=== PATIENT | male | born 1945 | race Caucasian/White ===

== ENCOUNTER → 2016-10-18 | Outpatient (CLI) | payer OTHER ==
--- NOTE | 2016-10-19 14:32 | CR ---
EXAM DATE: 10/18/16 PATIENT'S AGE: 71 Patient: CARLO PRATT Facility: [place], [place] Site . Site : 1945 Study: XRay Shoulder Right [id number]/9/2017 10:02:22 AM Ordering Physician: Dwayne Davison Final Report: Indication: Pain. Technique: Three views of the right shoulder. Comparison: None. Impression: No fracture. No suspicious bony lesions. No glenohumeral joint subluxation or dislocation. There are mild osteoarthritic changes of the glenohumeral joint, with joint space narrowing and marginal degenerate spurring. Presumed previous distal clavicular resection. No evidence of calcific tendinitis of the rotator cuff. Dictated by Zaki Kang MD @ Oct 19 2016 12:56PM (Electronic Signature) Report Signed by Proxy and Original Signed Document filed in the Medical Record. MUSA
== END ==
LOC: MW.CHORTHO 07:35
PROVIDERS: ATTEND Physician Assistant
DX: M25.511 Pain in right shoulder (principal); M25.512 Pain in left shoulder; M19.011 Primary osteoarthritis, right shoulder
CPT/HCPCS: 73030-26-RT; 73030-RT

== ENCOUNTER 2017-02-07 12:03 | Day surgery (SDC) | payer OTHER ==
[~2017-02-07 12:03] MED LIST: Betamethasone Acetate/Betamethasone Sod Phosphate 30 MG/5 ML MDV ONE; Iopamidol 408 MG/ML 50 ML SDV ONE; Lidocaine 2% 5 ML SDV ONE; Ropivacaine 0.5% 5 MG/ML 30 ML SDV ONE
--- NOTE | 2017-02-07 19:45 | OR ---
SURGEON: Do Melgar D.O. DATE OF PROCEDURE: 02/07/2017 OR STAFF PRESENT: 1. Lydia Rajan RN. 2. Mendoza Whiteside RN. ADMISSIONS CLINICIAN: RT Denisse. WOUND CLASSIFICATION: I. PREOPERATIVE DIAGNOSES: 1. Lumbar degenerative disk disease. 2. Lumbar spinal stenosis. 3. Lumbar radiculopathy. POSTOPERATIVE DIAGNOSES: 1. Lumbar degenerative disk disease. 2. Lumbar spinal stenosis. 3. Lumbar radiculopathy. PROCEDURE PERFORMED: 1. Caudal epidural steroid injection. 2. Fluoroscopic guidance for needle placement. 3. Local with oral Valium for sedation. SCREENING QUESTIONS: The patient answered "no" to all of the following questions: 1. Are you allergic to latex? 2. Do you have a bleeding disorder? 3. Do you have any current local or systemic infections? 4. Are you taking any anti-inflammatories or blood thinners? 5. Do you have any joint replacements, heart valve replacements, or a pacemaker? DESCRIPTION OF PROCEDURE: The patient had the procedure thoroughly explained including all possible risks, benefits and alternatives. Consent was signed in my clinic indicating understanding and willingness to proceed. The patient presented to [facility] [place] and was escorted to the dressing room to disrobe and change into a hospital gown. Preoperative vital signs were taken and stable. The patient reported that Valium was taken prior to the procedure. The patient was brought back to the procedure room and placed in the prone position on the procedure room table. A pillow was placed under the hips in order to flatten the lumbar lordosis. The back was prepped with ChloraPrep and sterilely draped. All personnel in the operating room were dressed in appropriate attire including surgical scrubs, head and shoe covers. This was to ensure sterility while in the treatment room. During the time fluoroscopy was in use, all personnel in the operating room wore lead moreno with thyroid collars. Sterile technique was used throughout the procedure. The patient was awake and conversant throughout the procedure. There was no evidence of infection at the site of needle insertion. Skeletal landmarks were identified under fluoroscopy for the caudal epidural. Skin was anesthetized with 2% lidocaine with a sterile 27-gauge 1.5 inch needle. Then a 20-gauge Tuohy epidural needle was placed in the epidural space with loss of resistance technique under fluoroscopic guidance. No heme, cerebrospinal fluid, or paresthesias were noted. Isovue-200 contrast dye was injected in 0.2 cubic centimeter increments and seen to outline the epidural space in both AP and lateral views. There was no intravascular flow pattern observed under live fluoroscopy. Then 12 milligrams of Celestone was slowly injected after negative aspiration. The patient tolerated the procedure well. Vital signs were stable during and after the procedure. The staff escorted the patient to the recovery area and the patient was released in stable condition after a brief stay in the recovery room monitored by the nurse. The patient was given both oral and written discharge and follow up instructions with recommendation to follow up given for 3 weeks. The patient voiced understanding including understanding of those signs and symptoms that would require emergency care. The patient knows how to contact the office if there are any additional problems or questions in the meantime. PREOPERATIVE PAIN: 8/10. POSTOPERATIVE PAIN: 0/10. FOLLOWUP: Follow up in the pain clinic in 3 weeks. PATRICE / LYDIA /[id number] MUSA
== END 2017-02-07 13:44 | disposition home or self-care (01) ==
LOC: MW.SDS 12:03
PROVIDERS: ATTEND Anesthesiology
DX: M51.16 Intervertebral disc disorders with radiculopathy, lumbar region (principal); M48.06 Spinal stenosis, lumbar region; M47.817 Spondylosis without myelopathy or radiculopathy, lumbosacral region; M19.90 Unspecified osteoarthritis, unspecified site; J45.909 Unspecified asthma, uncomplicated; K21.9 Gastro-esophageal reflux disease without esophagitis; I10 Essential (primary) hypertension; E78.00 Pure hypercholesterolemia, unspecified; M75.42 Impingement syndrome of left shoulder; M19.031 Primary osteoarthritis, right wrist; M19.032 Primary osteoarthritis, left wrist; Z91.048 Other nonmedicinal substance allergy status; Z79.899 Other long term (current) drug therapy; Z98.52 Vasectomy status; Z96.659 Presence of unspecified artificial knee joint; Z90.89 Acquired absence of other organs; Z98.890 Other specified postprocedural states
CPT/HCPCS: 62273; J0702; J2795; Q9966

== ENCOUNTER 2017-03-28 11:27 | Day surgery (SDC) | payer OTHER ==
[~2017-03-28 11:27] MED LIST changes: -Iopamidol 408 MG/ML 50 ML SDV ONE; +Ropivacaine 0.2% 2 MG/ML 20 ML SDV ONE
--- NOTE | 2017-03-28 20:09 | OR ---
SURGEON: Do Melgar D.O. DATE OF PROCEDURE: 03/28/2017 OR STAFF PRESENT: 1. Kathy Hayward. 2. Jose Tavares RN. FULLERETTE: RT Adelina. WOUND CLASSIFICATION: I. PREOPERATIVE DIAGNOSES: 1. Chronic low back pain. 2. Lumbar radiculopathy. 3. Lumbar spinal stenosis. POSTOPERATIVE DIAGNOSES: 1. Chronic low back pain. 2. Lumbar radiculopathy. 3. Lumbar spinal stenosis. PROCEDURE PERFORMED: 1. Caudal epidural steroid injection. 2. Fluoroscopic guidance for needle placement. 3. Local with oral Valium for sedation. SCREENING QUESTIONS: The patient answered "no" to all of the following questions: 1. Are you allergic to latex? 2. Do you have a bleeding disorder? 3. Do you have any current local or systemic infections? 4. Are you taking any anti-inflammatories or blood thinners? 5. Do you have any joint replacements, heart valve replacements, or a pacemaker? DESCRIPTION OF PROCEDURE: The patient had the procedure thoroughly explained including all possible risks, benefits and alternatives. Consent was signed in my clinic indicating understanding and willingness to proceed. The patient presented to [facility] [place] and was escorted to the dressing room to disrobe and change into a hospital gown. Preoperative vital signs were taken and stable. The patient reported that Valium was taken prior to the procedure. The patient was brought back to the procedure room and placed in the prone position on the procedure room table. A pillow was placed under the hips in order to flatten the lumbar lordosis. The back was prepped with ChloraPrep and sterilely draped. All personnel in the operating room were dressed in appropriate attire including surgical scrubs, head and shoe covers. This was to ensure sterility while in the treatment room. During the time fluoroscopy was in use, all personnel in the operating room wore lead moreno with thyroid collars. Sterile technique was used throughout the procedure. The patient was awake and conversant throughout the procedure. There was no evidence of infection at the site of needle insertion. Skeletal landmarks were identified under fluoroscopy for the caudal epidural. Skin was anesthetized with 2% lidocaine with a sterile 27-gauge 1.5 inch needle. Then a 20-gauge Tuohy epidural needle was placed in the epidural space with loss of resistance technique under fluoroscopic guidance. No heme, cerebrospinal fluid, or paresthesias were noted. Isovue-200 contrast dye was injected in 0.2 cubic centimeter increments and seen to outline the epidural space in both AP and lateral views. There was no intravascular flow pattern observed under live fluoroscopy. Then 12 milligrams of Celestone was slowly injected after negative aspiration. The patient tolerated the procedure well. Vital signs were stable during and after the procedure. The staff escorted the patient to the recovery area and the patient was released in stable condition after a brief stay in the recovery room monitored by the nurse. The patient was given both oral and written discharge and follow up instructions with recommendation to follow up given for 2-3 weeks. The patient voiced understanding including understanding of those signs and symptoms that would require emergency care. The patient knows how to contact the office if there are any additional problems or questions in the meantime. PREOPERATIVE PAIN: 7/10. POSTOPERATIVE PAIN: 2/10. FOLLOWUP: Follow up in the Pain Clinic in 3 weeks. PATRICE / LYDIA /[id number] MUSA
== END 2017-03-28 13:25 ==
LOC: MW.SDS 11:27
PROVIDERS: ATTEND Anesthesiology
DX: G89.29 Other chronic pain (principal); M54.5 Low back pain; M51.16 Intervertebral disc disorders with radiculopathy, lumbar region; M48.06 Spinal stenosis, lumbar region; M47.26 Other spondylosis with radiculopathy, lumbar region; M19.90 Unspecified osteoarthritis, unspecified site; J45.909 Unspecified asthma, uncomplicated; M19.079 Primary osteoarthritis, unspecified ankle and foot; K21.9 Gastro-esophageal reflux disease without esophagitis; I10 Essential (primary) hypertension; E78.00 Pure hypercholesterolemia, unspecified; M75.41 Impingement syndrome of right shoulder; M75.42 Impingement syndrome of left shoulder; M47.27 Other spondylosis with radiculopathy, lumbosacral region; Z79.82 Long term (current) use of aspirin; Z79.899 Other long term (current) drug therapy; Z91.048 Other nonmedicinal substance allergy status; Z98.52 Vasectomy status; Z96.659 Presence of unspecified artificial knee joint; Z90.89 Acquired absence of other organs; Z98.890 Other specified postprocedural states; Z77.22 Contact with and (suspected) exposure to environmental tobacco smoke (acute) (chronic)
CPT/HCPCS: 62323; J0702; J2795

== ENCOUNTER 2017-08-15 12:02 | Day surgery (SDC) | payer OTHER ==
[~2017-08-15 12:02] MED LIST changes: +Iopamidol 408 MG/ML 50 ML SDV ONE; -Ropivacaine 0.2% 2 MG/ML 20 ML SDV ONE
--- NOTE | 2017-08-15 20:43 | OR ---
SURGEON: Do Melgar D.O. DATE OF PROCEDURE: 08/15/2017 OR STAFF PRESENT: 1. Kathy Hayward. 2. Jose Sahu RT. WOUND CLASSIFICATION: I. PREOPERATIVE DIAGNOSES: 1. Lumbar spondylosis. 2. Chronic low back pain. 3. Post lumbar laminectomy syndrome. POSTOPERATIVE DIAGNOSES: 1. Lumbar spondylosis. 2. Chronic low back pain. 3. Post lumbar laminectomy syndrome. PROCEDURE PERFORMED: 1. Diagnostic medial branch blocks L3, L4, and L5 bilateral. 2. Fluoroscopic guidance for needle placement. 3. Local with oral Valium for sedation. SCREENING QUESTIONS: The patient answered "No" to all the following questions: 1. Are you allergic to iodine, Betadine or latex? 2. Do you have a bleeding disorder? 3. Are you on anti-inflammatories or blood thinners? 4. Do you have any current local or systemic infections? MEDICAL NECESSITY: This is a patient with chronic low back pain who comes in for the above diagnostic procedure. This procedure is being performed in accordance with national guidelines written by the [employer]; please see medical necessity note in chart. DESCRIPTION OF PROCEDURE: The patient had the procedure thoroughly explained including risks, benefits and alternatives. Consent was signed in my clinic indicating understanding and willingness to proceed. The patient presented to [facility] and was escorted to the dressing room to disrobe and change into a hospital gown. Preoperative history and screening were performed by my nurse. Vital signs were taken and stable. The patient reported that Valium 10 milligrams was taken prior to the procedure. The patient was brought back to the procedure room and placed in the prone position on the procedure room table. A pillow was placed under the abdomen in order to flatten the lumbar lordosis. The back was prepped with ChloraPrep and sterilely draped. All personnel in the procedure room were dressed in appropriate attire including surgical scrubs, head and shoe covers. This was to ensure sterility while in the treatment room. During the time fluoroscopy was in use all personnel in the operating room wore lead moreno with thyroid collars. Sterile technique was used during the procedure. The fluoroscope was positioned to provide a right oblique view. Then the right L3 medial branch block was begun by anesthetizing the skin and soft tissues with 2 cubic centimeters of 2% Preservative-Free Lidocaine with a 25-gauge 1.5 inch needle. There were no signs of infection at the site of needle skin insertions. Using fluoroscopic guidance a sterile 22-gauge 3.5 inch spinal needle was positioned at the junction of the transverse process with the superior articular process of the L4 vertebral body. Precise needle placement was confirmed by fluoroscopy and 0.2 cubic centimeters of IsoVue-200 contrast dye which was injected through microbore tubing under live fluoroscopy and showed no intravascular flow pattern and adequate flow over the target L3 medial branch. Then 0.5 cubic centimeters of 0.5% Ropivacaine Preservative-Free was injected slowly without complications after negative aspiration. Then the fluoroscope was positioned to provide a right oblique view for the right L4 medial branch. This was begun by anesthetizing the skin and soft tissues. The fluoroscope was positioned and a sterile 22-gauge 3.5 inch needle was placed at the junction of the transverse process in the superior articular process of the L5 vertebral body. Precise needle placement was confirmed by fluoroscopy. Then 0.2 cubic centimeters of IsoVue-200 contrast dye was injected through microbore tubing under live fluoroscopy and showed no intravascular flow pattern and adequate flow over the target medial branch. After negative aspiration, 0.5 cubic centimeters of 0.5% Ropivacaine was injected without complications. The fluoroscope was then positioned to provide a right L5 dorsal ramus block. This was begun by anesthetizing the skin and soft tissues over the right sacral sulcus. Then using fluoroscopic guidance, a sterile 22-gauge 3.5 inch spinal needle was positioned at the right sacral ala. Precise needle placement was confirmed by fluoroscopy in AP and oblique views, and 0.2 cubic centimeters of IsoVue-200 contrast dye was injected through microbore tubing under live fluoroscopy and showed no intravascular flow pattern and adequate flow over the target nerves. After negative aspiration, 0.5 cubic centimeters of 0.5% Ropivacaine was injected. No complications were noted. Then attention was turned to the left side. The fluoroscope was positioned to provide a left oblique view for the left L3 medial branch block. This was begun by anesthetizing the skin and soft tissues. Then a 22-gauge 3.5 inch needle was positioned at the junction of the transverse process and the superior articular process at the left L4 vertebral body. Precise needle placement was confirmed by fluoroscopy with 0.2 cubic centimeters of IsoVue-200 contrast dye injected through microbore tubing under live fluoroscopy showing no intravascular flow pattern and adequate flow over the target medial branch of L3 on the left. After negative aspiration, 0.5 cubic centimeters of 0.5% Ropivacaine was injected without complications. The fluoroscope was positioned then to provide a left L4 medial branch block. The skin was anesthetized. Then a 22-gauge 3.5 inch spinal needle was positioned at the junction of the transverse process in the superior articular process of the L5 vertebral body on the left. Precise needle placement was confirmed by fluoroscopy and with 0.2 cubic centimeters of IsoVue-200 contrast dye injected through microbore tubing showing no intravascular flow pattern and adequate flow over the target medial branch of L4 on the left. Then 0.5 cubic centimeters of 0.5% Ropivacaine was injected after negative aspiration without complications. Then the fluoroscope was positioned for the left L5 dorsal ramus block. This was begun by anesthetizing the skin and soft tissues. Then with fluoroscopic guidance a sterile 22-gauge 3.5 inch spinal needle was positioned at the left sacral ala. Precise needle placement was confirmed with 0.2 cubic centimeters of IsoVue-200 contrast dye injected through microbore tubing under live fluoroscopy showing no intravascular flow pattern and adequate flow over the target L5 nerve and then 0.5 cc ropivicaine was injected. The procedure was well tolerated and vital signs were stable during and after the procedure. The staff escorted the patient to the recovery area. The patient was given both oral and written discharge and followup instructions. The patient will follow up with a pain diary which will be evaluated over this evening doing things that would normally cause pain. We will evaluate the efficacy of the diagnostic lumbar medial branch blocks as the patient will follow up in the clinic the next day. The patient was given both oral and written discharge and followup instructions. The patient voiced understanding including understanding of those signs and symptoms that would require emergency care and knows how to contact the office if there are any questions or concerns in the meantime. PREOPERATIVE PAIN: 8/10. POSTOPERATIVE PAIN: 0/10. FOLLOWUP: Follow up in the pain clinic with pain diary in the morning. HOGLCHR / MODL /[id number] MUSA
== END 2017-08-15 15:35 | disposition home or self-care (01) ==
LOC: MW.SDS 12:02
PROVIDERS: ATTEND Anesthesiology
DX: M47.817 Spondylosis without myelopathy or radiculopathy, lumbosacral region (principal); J45.909 Unspecified asthma, uncomplicated; M19.079 Primary osteoarthritis, unspecified ankle and foot; R13.10 Dysphagia, unspecified; K22.10 Ulcer of esophagus without bleeding; K21.9 Gastro-esophageal reflux disease without esophagitis; M70.60 Trochanteric bursitis, unspecified hip; K64.9 Unspecified hemorrhoids; I10 Essential (primary) hypertension; E78.00 Pure hypercholesterolemia, unspecified; M75.41 Impingement syndrome of right shoulder; M75.42 Impingement syndrome of left shoulder; M19.031 Primary osteoarthritis, right wrist; M19.032 Primary osteoarthritis, left wrist; G89.29 Other chronic pain; Z91.048 Other nonmedicinal substance allergy status; Z79.82 Long term (current) use of aspirin; Z79.899 Other long term (current) drug therapy; Z90.89 Acquired absence of other organs; Z98.52 Vasectomy status
CPT/HCPCS: 64493; 64494; J2795; Q9966; 64450; J0702

== ENCOUNTER 2017-08-22 11:04 | Day surgery (SDC) | payer OTHER ==
[2017-08-22] MEDS ORDERED: Sodium Bicarbonate 8.4% 50 MEQ/50 ML SDV ONE (12:38)
--- NOTE | 2017-08-22 19:29 | OR ---
SURGEON: Do Melgar D.O. DATE OF PROCEDURE: 08/22/2017 OR STAFF PRESENT: 1. Kathy Barraza. 2. Jose Tavares. 3. Kathy Morris RN. 4. Elisha Elena RT. WOUND CLASSIFICATION: I. PREOPERATIVE DIAGNOSES: 1. Lumbar facet arthropathy. 2. Chronic low back pain. 3. Lumbar degenerative disk disease. 4. Lumbar spondylosis. POSTOPERATIVE DIAGNOSES: 1. Lumbar facet arthropathy. 2. Chronic low back pain. 3. Lumbar degenerative disk disease. 4. Lumbar spondylosis. PROCEDURE PERFORMED: 1. Bilateral L3, L4, L5, diagnostic medial branch blocks. 2. Fluoroscopic guidance for needle placement. 3. Local with oral Valium for sedation. SCREENING QUESTIONS: The patient answered "No" to all the following questions: 1. Are you allergic to iodine, Betadine or latex? 2. Do you have a bleeding disorder? 3. Are you on anti-inflammatories or blood thinners? 4. Do you have any current local or systemic infections? MEDICAL NECESSITY: This is a patient with chronic low back pain who comes in for the above diagnostic procedure. This procedure is being performed in accordance with national guidelines written by the [employer]; please see medical necessity note in chart. DESCRIPTION OF PROCEDURE: The patient had the procedure thoroughly explained including risks, benefits and alternatives. Consent was signed in my clinic indicating understanding and willingness to proceed. The patient presented to [facility] and was escorted to the dressing room to disrobe and change into a hospital gown. Preoperative history and screening were performed by my nurse. Vital signs were taken and stable. The patient reported that Valium 10 milligrams was taken prior to the procedure. The patient was brought back to the procedure room and placed in the prone position on the procedure room table. A pillow was placed under the abdomen in order to flatten the lumbar lordosis. The back was prepped with ChloraPrep and sterilely draped. All personnel in the procedure room were dressed in appropriate attire including surgical scrubs, head and shoe covers. This was to ensure sterility while in the treatment room. During the time fluoroscopy was in use all personnel in the operating room wore lead moreno with thyroid collars. Sterile technique was used during the procedure. The fluoroscope was positioned to provide a right oblique view. Then the right L3 medial branch block was begun by anesthetizing the skin and soft tissues with 2 cubic centimeters of 2% Preservative-Free Lidocaine with a 25-gauge 1.5 inch needle. There were no signs of infection at the site of needle skin insertions. Using fluoroscopic guidance a sterile 22-gauge 3.5 inch spinal needle was positioned at the junction of the transverse process with the superior articular process of the L4 vertebral body. Precise needle placement was confirmed by fluoroscopy and 0.2 cubic centimeters of IsoVue-200 contrast dye which was injected through microbore tubing under live fluoroscopy and showed no intravascular flow pattern and adequate flow over the target L3 medial branch. Then 0.5 cubic centimeters of 0.5% Ropivacaine Preservative-Free was injected slowly without complications after negative aspiration. Then the fluoroscope was positioned to provide a right oblique view for the right L4 medial branch. This was begun by anesthetizing the skin and soft tissues. The fluoroscope was positioned and a sterile 22-gauge 3.5 inch needle was placed at the junction of the transverse process in the superior articular process of the L5 vertebral body. Precise needle placement was confirmed by fluoroscopy. Then 0.2 cubic centimeters of IsoVue-200 contrast dye was injected through microbore tubing under live fluoroscopy and showed no intravascular flow pattern and adequate flow over the target medial branch. After negative aspiration, 0.5 cubic centimeters of 0.5% Ropivacaine was injected without complications. The fluoroscope was then positioned to provide a right L5 dorsal ramus block. This was begun by anesthetizing the skin and soft tissues over the right sacral sulcus. Then using fluoroscopic guidance, a sterile 22-gauge 3.5 inch spinal needle was positioned at the right sacral ala. Precise needle placement was confirmed by fluoroscopy in AP and oblique views, and 0.2 cubic centimeters of IsoVue-200 contrast dye was injected through microbore tubing under live fluoroscopy and showed no intravascular flow pattern and adequate flow over the target nerves. After negative aspiration, 0.5 cubic centimeters of 0.5% Ropivacaine was injected. No complications were noted. Then attention was turned to the left side. The fluoroscope was positioned to provide a left oblique view for the left L3 medial branch block. This was begun by anesthetizing the skin and soft tissues. Then a 22-gauge 3.5 inch needle was positioned at the junction of the transverse process and the superior articular process at the left L4 vertebral body. Precise needle placement was confirmed by fluoroscopy with 0.2 cubic centimeters of IsoVue-200 contrast dye injected through microbore tubing under live fluoroscopy showing no intravascular flow pattern and adequate flow over the target medial branch of L3 on the left. After negative aspiration, 0.5 cubic centimeters of 0.5% Ropivacaine was injected without complications. The fluoroscope was positioned then to provide a left L4 medial branch block. The skin was anesthetized. Then a 22-gauge 3.5 inch spinal needle was positioned at the junction of the transverse process in the superior articular process of the L5 vertebral body on the left. Precise needle placement was confirmed by fluoroscopy and with 0.2 cubic centimeters of IsoVue-200 contrast dye injected through microbore tubing showing no intravascular flow pattern and adequate flow over the target medial branch of L4 on the left. Then 0.5 cubic centimeters of 0.5% Ropivacaine was injected after negative aspiration without complications. Then the fluoroscope was positioned for the left L5 dorsal ramus block. This was begun by anesthetizing the skin and soft tissues. Then with fluoroscopic guidance a sterile 22-gauge 3.5 inch spinal needle was positioned at the left sacral ala. Precise needle placement was confirmed with 0.2 cubic centimeters of IsoVue-200 contrast dye injected through microbore tubing under live fluoroscopy showing no intravascular flow pattern and adequate flow over the target L5 nerve. The procedure was well tolerated and vital signs were stable during and after the procedure. The staff escorted the patient to the recovery area. The patient was given both oral and written discharge and followup instructions. The patient will follow up with a pain diary which will be evaluated over this evening doing things that would normally cause pain. We will evaluate the efficacy of the diagnostic lumbar medial branch blocks as the patient will follow up in the clinic the next day. The patient was given both oral and written discharge and followup instructions. The patient voiced understanding including understanding of those signs and symptoms that would require emergency care and knows how to contact the office if there are any questions or concerns in the meantime. PREOPERATIVE PAIN: 8/10. POSTOPERATIVE PAIN: 0 to 1 /10. FOLLOWUP: Follow up with pain diary in the morning in the Pain Clinic. HOGJANESSA / SIOBHANL /[id number]
== END 2017-08-22 13:32 | disposition home or self-care (01) ==
LOC: MW.SDS 11:04
PROVIDERS: ATTEND Anesthesiology
DX: G89.29 Other chronic pain (principal); J45.909 Unspecified asthma, uncomplicated; M19.079 Primary osteoarthritis, unspecified ankle and foot; M47.27 Other spondylosis with radiculopathy, lumbosacral region; K22.10 Ulcer of esophagus without bleeding; K21.9 Gastro-esophageal reflux disease without esophagitis; I10 Essential (primary) hypertension; M54.5 Low back pain; E78.00 Pure hypercholesterolemia, unspecified; M19.032 Primary osteoarthritis, left wrist; M19.031 Primary osteoarthritis, right wrist; Z91.048 Other nonmedicinal substance allergy status; Z79.82 Long term (current) use of aspirin; Z79.899 Other long term (current) drug therapy; Z90.89 Acquired absence of other organs; Z98.52 Vasectomy status
CPT/HCPCS: 64493; 64494; J2795; Q9966; 64450; J0702

== ENCOUNTER 2017-08-29 12:17 | Day surgery (SDC) | payer OTHER ==
--- NOTE | 2017-08-29 20:12 | OR ---
SURGEON: Do Melgar D.O. DATE OF PROCEDURE: 08/29/2017 OR STAFF PRESENT: 1. Romario Olmedo RN 2. Kathy Saldaña RN 3. Supervisor [employer]. WOUND CLASSIFICATION: I. PREOPERATIVE DIAGNOSES: 1. Lumbar facet arthropathy. 2. Lumbar degenerative disk disease. 3. Lumbar spinal stenosis. 4. Failed back surgery syndrome. POSTOPERATIVE DIAGNOSES: 1. Lumbar facet arthropathy. 2. Lumbar degenerative disk disease. 3. Lumbar spinal stenosis. 4. Failed back surgery syndrome. PROCEDURE PERFORMED: 1. Left L4-5 and left L5-S1 facet joint injections. 2. Fluoroscopic guidance for needle placement. 3. Local with oral Valium for sedation. SCREENING QUESTIONS: The patient answered "No" to all the following questions: 1. Are you allergic to iodine, Betadine or latex? 2. Do you have a bleeding disorder? 3. Are you on anti-inflammatories or blood thinners? 4. Do you have any current local or systemic infections? MEDICAL NECESSITY: This is a patient with chronic low back pain who comes in for the above diagnostic procedure. This procedure is being performed in accordance with national guidelines written by the [employer] DESCRIPTION OF PROCEDURE: The patient had the procedure thoroughly explained including risks, benefits and alternatives. Consent was signed in my clinic indicating understanding and willingness to proceed. The patient presented to [facility] and was escorted to the dressing room to disrobe and change into a hospital gown. Preoperative history and screening were performed by my nurse. Vital signs were taken and stable. The patient reported that Valium 10 milligrams was taken prior to the procedure. The patient was brought back to the procedure room and placed in the prone position on the procedure room table. A pillow was placed under the abdomen in order to flatten the lumbar lordosis. The back was prepped with ChloraPrep and sterilely draped. All personnel in the procedure room were dressed in appropriate attire including surgical scrubs, head and shoe covers. This was to ensure sterility while in the treatment room. During the time fluoroscopy was in use all personnel in the operating room wore lead moreno with thyroid collars. Sterile technique was used during the procedure. Then the fluoroscope was positioned to provide a right oblique view for the right L4-5 facet joint injection. This was begun by anesthetizing the skin and soft tissues. The fluoroscope was positioned and a sterile 22-gauge 3.5 inch needle was placed at the mid junction of the L4-5 facet joint. Precise needle placement was confirmed by fluoroscopy. Then 0.2 cubic centimeters of IsoVue-200 contrast dye was injected through microbore tubing under live fluoroscopy and showed no intravascular flow pattern and adequate flow out lining the facet joint. After negative aspiration, 0.5 cubic centimeters increments of celestone and local was injected without complications and total of 1 cc. The fluoroscope was positioned then to provide a right oblique view for the L5- S1 facet joint injection. The skin was anesthetized. Then a 22-gauge 3.5 inch spinal needle was positioned at the mid junction of the L5-S1 facet joint. Precise needle placement was confirmed by fluoroscopy and with 0.2 cubic centimeters of IsoVue-200 contrast dye injected through microbore tubing showing no intravascular flow pattern and adequate flow over the target . Then 0.5 cubic centimeters incremnets of celestone and local was injected after negative aspiration without complications. The procedure was well tolerated and vital signs were stable during and after the procedure. The staff escorted the patient to the recovery area. The patient was given both oral and written discharge and followup instructions. The patient will follow up with a pain diary which will be evaluated over this evening doing things that would normally cause pain. We will evaluate the efficacy of the diagnostic lumbar medial branch blocks as the patient will follow up in the clinic the next day. The patient was given both oral and written discharge and followup instructions. The patient voiced understanding including understanding of those signs and symptoms that would require emergency care and knows how to contact the office if there are any questions or concerns in the meantime. PREOPERATIVE PAIN: 8/10. POSTOPERATIVE PAIN: 0/10. PLAN: Follow up in the Pain Clinic in 3 weeks. HOGLCHR / SIOBHANL /[id number] MUSA
== END 2017-08-29 14:35 | disposition home or self-care (01) ==
LOC: MW.SDS 12:17
PROVIDERS: ATTEND Anesthesiology
DX: G89.29 Other chronic pain (principal); M54.5 Low back pain; M48.061 Spinal stenosis, lumbar region without neurogenic claudication; M51.36 Other intervertebral disc degeneration, lumbar region; M96.1 Postlaminectomy syndrome, not elsewhere classified; M19.90 Unspecified osteoarthritis, unspecified site; J45.909 Unspecified asthma, uncomplicated; M19.079 Primary osteoarthritis, unspecified ankle and foot; K21.9 Gastro-esophageal reflux disease without esophagitis; M70.60 Trochanteric bursitis, unspecified hip; I10 Essential (primary) hypertension; E78.00 Pure hypercholesterolemia, unspecified; M47.817 Spondylosis without myelopathy or radiculopathy, lumbosacral region; M19.032 Primary osteoarthritis, left wrist; M19.031 Primary osteoarthritis, right wrist; Z79.82 Long term (current) use of aspirin; Z79.899 Other long term (current) drug therapy; Z96.659 Presence of unspecified artificial knee joint; Z90.89 Acquired absence of other organs
CPT/HCPCS: 64493; 64494; J0702; J2795; Q9966; 64490-50

== ENCOUNTER 2017-12-04 08:34 | Day surgery (SDC) | payer OTHER, MEDICARE ==
[~2017-12-04 08:34] MED LIST changes: +Acetaminophen/HYDROcodone 325-10 MG Tab PO PRN; -Betamethasone Acetate/Betamethasone Sod Phosphate 30 MG/5 ML MDV ONE; +Bupivacaine 0.5% 30 ML SDV ONE; +Glycopyrrolate 0.2 MG/ML SDV ONE; -Iopamidol 408 MG/ML 50 ML SDV ONE; +Ketorolac 10 MG Tab PO PRN; +Ketorolac 30 MG/ML SDV ONE; +Lactated Ringers 1,000 ML IV SCH; -Lidocaine 2% 5 ML SDV ONE; +Midazolam 1 MG/ML 2 ML SDV ONE; +Ondansetron 4 MG/2 ML SDV ONE; +Propofol 200 MG/20 ML SDV ONE; +ceFAZolin 2 GM in Premix Bag 1 BAG IV SCH; +fentaNYL 100 MCG/2 ML SDV ONE
[2017-12-04] MEDS ORDERED: Sugammadex Sodium 200 MG/2 ML VIAL ONE (08:38)
--- NOTE | 2017-12-04 09:43 | PCM.PREANE ---
Preanesthetic Assessment - Anesthesia/Transfusion/Family Hx Anesthesia History: Prior Anesthesia Without Reaction Other Type of Anesthesia Reaction Comment: Denies any known problem with anesthesia in the past, hx: vertigo Family History of Anesthesia Reaction: No Transfusion History: No Prior Transfusion(s) - Review of Systems General: No Symptoms Pulmonary: No Symptoms Cardiovascular: No Symptoms Gastrointestinal: No Symptoms Neurological: No Symptoms Other: Reports: None - Physical Assessment NPO Status Date: 12/03/17 O2 Sat by Pulse Oximetry: 94 Respiratory Rate: 16 Vital Signs: Last Vital Signs Temp 37.3 C 12/04/17 09:16 Pulse 69 12/04/17 09:16 Resp 16 12/04/17 09:16 BP 116/80 12/04/17 09:16 Pulse Ox 94 L 12/04/17 09:16 Height: 1.78 m Weight: 92.986 kg ASA Class: 2 Mental Status: Alert & Oriented x3 Airway Class: Mallampati = 1 Dentition: Reports: Normal Dentition ROM/Head Extension: Full Lungs: Clear to Auscultation, Normal Respiratory Effort Cardiovascular: Regular Rate, Regular Rhythm - Allergies Allergies/Adverse Reactions: Allergies Allergy/AdvReac Type Severity Reaction Status Date / Time atorvastatin calcium Allergy Body Aches Verified 12/02/17 11:52 [From Lipitor] Animal dander Allergy Itching Uncoded 12/02/17 11:52 Crestor Allergy Body Aches Uncoded 12/02/17 11:52 - Anesthesia Plan Pre-Op Medication Ordered: None (risks and benefits for ISB discussed. ) - Acknowledgements Anesthesia Type Planned: General Anesthesia Pt an Appropriate Candidate for the Planned Anesthesia: Yes Alternatives and Risks of Anesthesia Discussed w Pt/Guardian: Yes Pt/Guardian Understands and Agrees with Anesthesia Plan: Yes PreAnesthesia Questionnaire HEENT History: Reports: Cataract, Hard of Hearing Other HEENT History: uses reading glasses, right hearing aide not working, is deaf in left ear Cardiovascular History: Reports: High Cholesterol, Hypertension Respiratory History: Reports: Asthma Other Respiratory History: had asthma as a child,. does not use inhaler Gastrointestinal History: Reports: GERD, Hiatal Hernia Musculoskeletal History: Reports: Back Pain, Chronic, Neck Pain, Chronic, Osteoarthritis Neurological History: Reports: Headaches, Chronic, Migraines - Past Surgical History Head Surgeries/Procedures: Reports: None HEENT Surgical History: Reports: Cataract Surgery GI Surgical History: Reports: Hernia, Inguinal, Other (See Below) Other GI Surgeries/Procedures: umbilical hernia repair x2 Neurological Surgical History: Reports: Laminectomy Musculoskeletal Surgical History: Reports: Knee Replacement, Other (See Below) Other Musculoskeletal Surgeries/Procedures:: bilateral TKA, left foot reconstruction (has screws in foor) - SUBSTANCE USE Smoking Status *Q: Never Smoker Second Hand Smoke Exposure: No Recreational Drug Use History: No - HOME MEDS Home Medications: Home Meds Enalapril [Vasotec] 20 mg PO BRK 07/01/14 [History] Hydrochlorothiazide 25 mg PO BRK 07/01/14 [History] Pravastatin [Pravachol] 80 mg PO DAILY 07/01/14 [History] Aspirin [Adult Low Dose Aspirin EC] 81 mg PO DAILY 12/02/17 [History] Ezetimibe [Zetia] 10 mg PO QAM 12/02/17 [History] Lutein/Minerals/Vit A,C & E [Ocuvite] 1 tab PO DAILY 12/02/17 [History] Testosterone Cypionate 1 ml IM ASDIRECTED 12/02/17 [History] Topiramate 25 mg PO DAILY 12/02/17 [History] - CURRENT (IN HOUSE) MEDS Current Meds: Current Medications Hydrocodone Bitart/Acetaminophen (Bishop 325-10 Mg) 1 - 2 tab PO Q4H PRN PRN Reason: Pain Cefazolin Sodium/Dextrose 2 gm (/ Premix) 50 mls @ 100 mls/hr IV ONCALL [facility] Lactated Ringer's (Ringers, Lactated) 1,000 mls @ 100 mls/hr IV ASDIRECTED [facility] Last Admin: 12/04/17 09:00 Dose: 100 mls/hr Ketorolac Tromethamine (Toradol) 10 mg PO Q6H PRN PRN Reason: Pain Stop: 12/09/17 08:01 Discontinued Medications Bupivacaine HCl (Marcaine 0.5%) Confirm Administered Dose 30 ml .ROUTE .STK-MED ONE Stop: 12/04/17 07:31 Fentanyl (Sublimaze) Confirm Administered Dose 100 mcg .ROUTE .STK-MED ONE Stop: 12/04/17 07:07 Glycopyrrolate (Robinul) Confirm Administered Dose 0.2 mg .ROUTE .STK-MED ONE Stop: 12/04/17 07:18 Ketorolac Tromethamine (Toradol) Confirm Administered Dose 30 mg .ROUTE .STK- MED ONE Stop: 12/04/17 07:18 Midazolam HCl (Versed 1 Mg/Ml) Confirm Administered Dose 2 mg .ROUTE .STK-MED ONE Stop: 12/04/17 07:08 Ondansetron HCl (Zofran) Confirm Administered Dose 4 mg .ROUTE .STK-MED ONE Stop: 12/04/17 07:18 Propofol (Diprivan 20 Ml) Confirm Administered Dose 200 mg .ROUTE .STK-MED ONE Stop: 12/04/17 07:07 Ropivacaine (Naropin 0.5%) Confirm Administered Dose 90 ml .ROUTE .STK-MED ONE Stop: 12/04/17 07:26
[2017-12-04] MEDS ORDERED: Lidocaine 1% 20 ML MDV ONE (09:47)
[2017-12-04] MEDS ORDERED: fentaNYL 100 MCG/2 ML SDV IVPUSH PRN (09:56)
[2017-12-04] MEDS ORDERED: Phenylephrine/Normal Saline 100 MCG/ML 10 ML Syringe ONE ×2 (10:08→13:07)
[2017-12-04] MEDS ORDERED: Bupivacaine 0.25% 10 ML SDV ONE (10:56)
[2017-12-04] MEDS ORDERED: Sodium Chloride 0.9% 20 ML ONE (10:59)
[2017-12-04] MEDS ORDERED: ceFAZolin 1 GM Vial ONE (10:59)
[2017-12-04] MEDS ORDERED: Rocuronium 10 MG/ML 10 ML Syringe ONE (11:01)
[2017-12-04] MEDS ORDERED: Glycopyrrolate 0.2 MG/ML SDV ONE (11:47)
--- NOTE | 2017-12-04 12:05 | PCM.PRNOTE ---
- Free Text/Narrative Note: Anes Procedure Note L ISB Block for Post Op Pain Management Risks and Methods were discussed. Sterile technique L IS groove inspected and identified. Chloroprep to area. Sterile drape applied. LOcal 1 cc 1% lido injected 22 X 2 Stimpluex needle used using neurve stimulator set a 1 mA. Bicep twitch easily achieved single attempt. Excellent twitch note down to 0.6 mA. Neg aspiration of blood, and no parasthesia. INjected with 8 mg Decadron and 30 cc 0.5% bupivicaine in slow divided doses with frequest aspirations. Brendan well, excellent analgesia noted. Time with patient [id number]-`050 Alfonso Ferreira CRNA
[2017-12-04] MEDS ORDERED: EPINEPHrine 1 MG/ML SDV ONE ×2 (12:20→12:51)
[2017-12-04] MEDS ORDERED: fentaNYL 100 MCG/2 ML SDV ONE (13:26)
--- NOTE | 2017-12-04 14:05 | PCM.OPNOTE ---
- General Post-Op/Procedure Note Date of Surgery/Procedure: 12/04/17 Operative Procedure(s): L shoulder arthroscopy with SAD, extensive debridement, DCE, and RTCR. R shoulder subacromial injection Post-Op Diagnosis: L shoulder DJD, biceps tendonopathy, degenerative anterior/ posterior labral tear, AC joint DJD, and RTC tear. R shoulder impingement Anesthesia Technique: General ET Tube, Regional Block Primary Surgeon: Sherrill Matias Medical Cost Consultant: Laney Rice in mLs: 10 Condition: Good Free Text/Narrative:: #[id number]
--- NOTE | 2017-12-04 14:12 | PCM.SN ---
- Free Text/Narrative Note: Face to Face documentation for home health Discussed with patient and DX: 1. s/p L shoulder arthroscopy with RTC repair 2. Bilateral hip greater trochanteric bursitis 3. Bilateral TKA 4. Gait abnormalities secondary to above Services needed: 1. nursing--dressing changes, assistance with shoulder immobilizer 2. OT--ADL's, home adaptive equipment as needed Patient will be homebound due to left shoulder immobilizer and balance issues due to combination of above diagnoses. Unable to drive.
--- NOTE | 2017-12-04 14:54 | PCM.POSTAN ---
POST ANESTHESIA ASSESSMENT - MENTAL STATUS Mental Status: Alert, Oriented - RESPIRATORY Respiratory Status: Respiratory Rate WNL, Airway Patent, O2 Saturation Stable - CARDIOVASCULAR CV Status: Pulse Rate WNL, Blood Pressure Stable - GASTROINTESTINAL GI Status: No Symptoms - POST OP HYDRATION Hydration Status: Adequate & Stable
--- NOTE | 2017-12-04 14:55 | PCM48HPAN ---
Post Anesthesia Note - EVALUATION WITHIN 48HRS OF ANESTHETIC Vital Signs in Normal Range: Yes Patient Participated in Evaluation: Yes Respiratory Function Stable: Yes Airway Patent: Yes Cardiovascular Function Stable: Yes Hydration Status Stable: Yes Pain Control Satisfactory: Yes Nausea and Vomiting Control Satisfactory: Yes Mental Status Recovered: Yes Resp Rate: 16
[2017-12-04 16:45] VITALS: BP 114/78
--- NOTE | 2017-12-05 09:44 | OR ---
SURGEON: Sherrill Matias MD DATE OF PROCEDURE: 12/04/2017 PREOPERATIVE DIAGNOSES: 1. Left shoulder impingement syndrome. 2. Left shoulder biceps tendinopathy. 3. 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 4. Left shoulder rotator cuff tear. 5. Right shoulder impingement syndrome. POSTOPERATIVE DIAGNOSES: 1. Left shoulder impingement syndrome. 2. Left shoulder biceps tendinopathy. 3. 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 4. Left shoulder rotator cuff tear. 5. Right shoulder impingement syndrome. 6. Left shoulder degenerative anterior and posterior labral tear. 7. Left shoulder glenohumeral degenerative joint disease. PROCEDURES: Left shoulder arthroscopy with: 1. Subacromial decompression with release of coracoacromial ligament and acromioplasty. 2. Extensive debridement including biceps tenotomy and debridement of degenerative anterior and posterior labral tear. 3. Arthroscopic distal clavicle excision. 4. Arthroscopic rotator cuff repair. 5. Right shoulder subacromial injection (large joint). LEVEL GLASS VIAL FILLER: Laney Rice PA-C ANESTHESIA: General with interscalene block. ESTIMATED BLOOD LOSS: 10 mL. TOURNIQUET TIME: 0 minutes. COMPLICATIONS: None. DEEP VENOUS THROMBOSIS PROPHYLAXIS: PAS boots to bilateral lower extremities. IMPLANTS USED: Two Arthrex 4.5 mm corkscrew anchors (Bio[employer]posite) and one 4.75 mm Arthrex SwiveLock anchor ([employer]). BRIEF HISTORY: Derrick is a 72-year-old male, who has had complaint of progressive left shoulder pain. He has tried conservative treatment including injections, which did not give him adequate relief. Due to his lack of response to conservative treatment, I did recommend surgical intervention. The risks and goals of procedure were discussed with the patient and were documented preoperatively. He agreed to proceed. The patient has also had complaint of persistent right shoulder impingement. He has had cortisone injections in the past. I also recommended that we proceed with that today. He agreed to proceed. DESCRIPTION OF PROCEDURE: The patient was properly identified and brought to the operating room. He was transferred from the OR cart and placed on the operating table in a supine position. General anesthesia was administered. An interscalene block had been administered preoperatively. After adequate anesthesia was obtained, the patient was placed into a beach-chair type position. Care was taken to pad all bony prominences. His head was secured. The left upper extremity was then prepped in standard fashion using ChloraPrep solution. It was then sterilely draped. A time-out was performed to ensure correct site and procedure. Preoperative antibiotics were given. The surgical site had been marked preoperatively. A marking pen was used to identify the bony landmarks. Approximately 30 mL normal saline was introduced into the glenohumeral joint. A posterior portal was established. Blunt trocar and cannula were introduced into the glenohumeral joint. Camera, inflow, and outflow were assembled. The rotator interval showed evidence of mild synovitis. The subscapularis was visualized. This did not appear to be torn. The subscapular recess showed no loose bodies. An anterior portal was then established within the rotator interval. The subscapularis was probed and found to be stable. The biceps tendon was then inspected. It had extensive degenerative fraying along the visualized intra-articular portion. Further fraying was noted as the distal portion was pulled into the joint. A biceps tenotomy was performed using electrocautery. The biceps retracted easily into the distal tendon sheath. Its attachment on the superior labrum was then smoothed. There appeared to be degenerative fraying of both the anterior and posterior labrum. This was resected with the electrocautery as well. The remainder of the labrum appeared stable. Articular surfaces were then inspected. He had evidence of diffuse grade 2 to grade 3 chondromalacia along both the glenoid, as well as the humeral head. I then extended down into the axillary pouch. No loose bodies were identified. There did not appear to be significant synovitis. The arm was then brought into an abducted and externally rotated position. The bare area was noted posteriorly. As I progressed forward, there was a full- thickness tear of the supraspinatus tendon. The arm was brought back into a neutral position. Instruments were then placed into the subacromial space. Camera, inflow, and outflow were again assembled. A lateral portal arthrotomy was established. Shaver was introduced. Using a combination of the shaver and electrocautery, an extensive bursectomy was performed. He did have some hemorrhagic bursa present. The coracoacromial ligament was then released along the anterior portion of the undersurface of the acromion. He had a large type 2 acromion. I was able to debride the soft tissue to the acromioclavicular joint. A large inferior spur along the undersurface of the distal clavicle was also noted. Using a 5.0 mm bur, an acromioplasty was performed. This provided good decompression of the subacromial space. I then performed a resection of the distal clavicle. Approximately 8 mm of bone was removed from the distal clavicle. Care was taken to protect the superior capsular fibers. The rotator cuff was then inspected. He had a full-thickness tear of the supraspinatus. This was a crescent-type tear. The footprint just lateral to the articular margin was debrided of soft tissue. The toney was used to roughen the bony surface. I did use a cuff grasper and was able to easily pull the cuff tissue back to its footprint. We elected to proceed with repair. It should be noted the cuff tissue was not as robust as expected. He did have some interstitial tearing of the cuff tissue throughout the supraspinatus. Two 4.5 mm suture anchors were then placed into the prepared footprint, just lateral to the articular margin. Sutures were passed through the cuff tissue and the sutures were then tied in a [id number] fashion. This provided good compression of the cuff to the bony footprint. I elected to place a lateral row as well to add additional compression to the rotator cuff. A 4.75 mm SwiveLock anchor was then placed laterally, incorporating the sutures from the medial row. The final rotator cuff repair was probed. We had good compression of the rotator cuff and the repair appeared to be water tight. Instruments were then removed from the shoulder. The portal sites were closed with 3-0 nylon. Xeroform gauze was placed over the wound and a bulky dressing was applied. He was placed into a shoulder immobilizer. He was awakened from his anesthetic and transferred back to the operating room cart. He was brought to recovery room in stable condition. All needle and sponge counts were correct. JASVIR / LYDIA /[id number]
== END 2017-12-04 16:15 | disposition home or self-care (01) ==
LOC: MW.SDS 08:34
PROVIDERS: ATTEND Orthopaedic Surgery
DX: M75.122 Complete rotator cuff tear or rupture of left shoulder, not specified as traumatic (principal); M75.42 Impingement syndrome of left shoulder; M19.012 Primary osteoarthritis, left shoulder; M94.212 Chondromalacia, left shoulder; M70.62 Trochanteric bursitis, left hip; M70.61 Trochanteric bursitis, right hip; I12.9 Hypertensive chronic kidney disease with stage 1 through stage 4 chronic kidney disease, or unspecified chronic kidney disease; N18.9 Chronic kidney disease, unspecified; K21.9 Gastro-esophageal reflux disease without esophagitis; G47.00 Insomnia, unspecified; G43.909 Migraine, unspecified, not intractable, without status migrainosus; H93.19 Tinnitus, unspecified ear; E78.5 Hyperlipidemia, unspecified; E66.9 Obesity, unspecified; E78.00 Pure hypercholesterolemia, unspecified; J45.909 Unspecified asthma, uncomplicated; K44.9 Diaphragmatic hernia without obstruction or gangrene; M19.90 Unspecified osteoarthritis, unspecified site; G89.29 Other chronic pain; M54.2 Cervicalgia; M54.9 Dorsalgia, unspecified; Z79.82 Long term (current) use of aspirin; Z79.899 Other long term (current) drug therapy; Z88.8 Allergy status to other drugs, medicaments and biological substances; Z91.048 Other nonmedicinal substance allergy status; Z98.49 Cataract extraction status, unspecified eye; Z96.653 Presence of artificial knee joint, bilateral; Z98.890 Other specified postprocedural states
CPT/HCPCS: 20610; 29823; 29824; 29826; 29827; 88304; A9270; C1713; J0171; J0690; J1885; J2250; J2405; J2795; J3010; J7120; 01630; 64415; J2704

== ENCOUNTER 2018-09-17 10:46 | Emergency (ER) | payer OTHER ==
[2018-09-17] MEDS ORDERED: Sodium Chloride 0.9% 2.5 ML Syringe FLUSH PRN (11:03)
[2018-09-17] MEDS ORDERED: Sodium Chloride 0.9% 10 ML Syringe FLUSH PRN (11:03)
--- NOTE | 2018-09-17 11:08 | EDM.PDOC ---
ED HPI GENERAL MEDICAL PROBLEM - General Chief Complaint: Abdominal Pain Stated Complaint: ABDOMINAL PAIN Time Seen by Provider: 09/17/18 10:48 Source of Information: Reports: Patient History Limitations: Reports: No Limitations - History of Present Illness INITIAL COMMENTS - FREE TEXT/NARRATIVE: History of present illness: []Patient shoveling snow 4 days ago and went inside to watch the Super Bowl and started complaining of severe upper abdominal pain. Patient has continued to have pain that is worsening. He denies any fevers, chills, vomiting, diarrhea, blood in his urine or stool, constipation, or back pain. Patient has had an umbilical herniorrhaphy 2 but denies pain around his umbilicus. Review of systems: As per history of present illness and below otherwise all systems reviewed and negative. Past medical history: As per history of present illness and as reviewed below otherwise noncontributory. Surgical history: As per history of present illness and as reviewed below otherwise noncontributory. Social history: No reported history of drug or alcohol abuse. Family history: As per history of present illness and as reviewed below otherwise noncontributory. Physical exam: General: Well developed, well nourished in NAD HEENT: Atraumatic, normocephalic, pupils reactive, negative for conjunctival pallor or scleral icterus, mucous membranes moist, throat clear, neck supple, nontender, trachea midline. Lungs: Clear to auscultation, breath sounds equal bilaterally, chest nontender. Heart: S1S2, regular, negative for clicks, rubs, or JVD. Abdomen: NABS, Soft, nondistended, nontender. Negative for masses or hepatosplenomegaly. Negative for costovertebral tenderness. Pelvis: Stable nontender. Genitourinary: Deferred. Rectal: Deferred. Extremities: Atraumatic, negative for cords or calf pain. Neurovascular unremarkable. Neuro: Awake, alert, oriented. Cranial nerves II through XII unremarkable. Cerebellum unremarkable. Motor and sensory unremarkable throughout. Exam nonfocal. Skin:warm and dry Diagnostics: CBC, chemistry, lipase, CT abdomen pelvis Therapeutics: IV fluids, potassium ED Course: Discussed with Dr. De Leon who stated he will see him in his clinic and a week to 10 days Impression: Omental fat infarct Prescriptions: Hydrocodone No. 30 Plan: Follow-up with general surgery in one week, return if symptoms worsen or change Definitive disposition and diagnosis as appropriate pending reevaluation and review of above. Middle Abdominal Pain Score (Numeric/FACES): 8 - Related Data Allergies Allergy/AdvReac Type Severity Reaction Status Date / Time atorvastatin calcium Allergy Body Aches Verified 12/02/17 11:52 [From Lipitor] tramadol Allergy Rash Verified 09/17/18 11:03 Animal dander Allergy Itching Uncoded 12/02/17 11:52 Crestor Allergy Body Aches Uncoded 12/02/17 11:52 Home Meds: Home Meds Enalapril [Vasotec] 20 mg PO BRK 07/01/14 [History] Pravastatin [Pravachol] 80 mg PO DAILY 07/01/14 [History] hydroCHLOROthiazide [Hydrochlorothiazide] 25 mg PO BRK 07/01/14 [History] Aspirin [Adult Low Dose Aspirin EC] 81 mg PO DAILY 12/02/17 [History] Ezetimibe [Zetia] 10 mg PO QAM 12/02/17 [History] Lutein/Minerals/Vit A,C & E [Ocuvite] 1 tab PO DAILY 12/02/17 [History] Testosterone Cypionate 1 ml IM ASDIRECTED 12/02/17 [History] Topiramate 25 mg PO DAILY 12/02/17 [History] Hydrocodone/Acetaminophen [[place] 10-325 Tablet] 1 - 2 tab PO Q4H PRN #80 tablet 12/04/17 [Rx] Acetaminophen/HYDROcodone [[place] 325-5 MG] 1 tab PO Q6H PRN #30 tablet 09/17/18 [Rx] Omeprazole 20 mg PO DAILY 09/17/18 [History] Past Medical History HEENT History: Reports: Cataract, Hard of Hearing Other HEENT History: uses reading glasses, right hearing aide not working, is deaf in left ear Cardiovascular History: Reports: High Cholesterol, Hypertension Respiratory History: Reports: Asthma Other Respiratory History: had asthma as a child,. does not use inhaler Gastrointestinal History: Reports: GERD, Hiatal Hernia Musculoskeletal History: Reports: Back Pain, Chronic, Neck Pain, Chronic, Osteoarthritis Neurological History: Reports: Headaches, Chronic, Migraines - Past Surgical History Head Surgeries/Procedures: Reports: None HEENT Surgical History: Reports: Cataract Surgery GI Surgical History: Reports: Hernia, Inguinal, Other (See Below) Other GI Surgeries/Procedures: umbilical hernia repair x2 Neurological Surgical History: Reports: Laminectomy Musculoskeletal Surgical History: Reports: Knee Replacement, Other (See Below) Other Musculoskeletal Surgeries/Procedures:: bilateral TKA, left foot reconstruction (has screws in foor) ED ROS GENERAL - Review of Systems Review Of Systems: ROS reveals no pertinent complaints other than HPI. ED EXAM, GI/ABD - Physical Exam Exam: See Below (See history of present illness) Course - Vital Signs Last Recorded V/S: Last Vital Signs Temp 97.3 F 09/17/18 12:19 Pulse 62 09/17/18 13:07 Resp 14 09/17/18 13:07 BP 158/86 H 09/17/18 13:07 Pulse Ox 99 09/17/18 13:07 - Orders/Labs/Meds Orders: Active Orders 24 hr Category Date Time Status Sodium Chloride 0.9% [Saline Flush] Med 09/17/18 11:03 Active 10 ml FLUSH ASDIRECTED PRN Sodium Chloride 0.9% [Saline Flush] Med 09/17/18 11:03 Active 2.5 ml FLUSH ASDIRECTED PRN Saline Lock Insert [OM.PC] Stat Oth 09/17/18 11:03 Ordered Medication Orders Sodium Chloride (Saline Flush) 10 ml FLUSH ASDIRECTED PRN PRN Reason: Keep Vein Open Last Admin: 09/17/18 11:16 Dose: 10 ml Sodium Chloride (Saline Flush) 2.5 ml FLUSH ASDIRECTED PRN PRN Reason: Keep Vein Open Last Admin: 09/17/18 11:16 Dose: 2.5 ml Labs: Laboratory Tests 09/17/18 09/17/18 09/17/18 Range/Units 11:02 11:02 11:15 WBC 8.15 (4.0-11.0) K/uL RBC 4.21 L (4.50-5.90) M/uL Hgb 12.8 L (13.0-17.0) g/dL Hct 36.3 L (38.0-50.0) % MCV 86.2 (80.0-98.0) fL MCH 30.4 (27.0-32.0) pg MCHC 35.3 (31.0-37.0) g/dL RDW Std Deviation 49.8 (28.0-62.0) fl RDW Coeff of Jean Claude 16 H (11.0-15.0) % Plt Count 248 (150-400) K/uL MPV 9.60 (7.40-12.00) fL Neut % (Auto) 53.6 (48.0-80.0) % Lymph % (Auto) 36.1 (16.0-40.0) % Iron % (Auto) 7.6 (0.0-15.0) % Eos % (Auto) 2.3 (0.0-7.0) % Baso % (Auto) 0.4 (0.0-1.5) % Neut # (Auto) 4.4 (1.4-5.7) K/uL Lymph # (Auto) 2.9 H (0.6-2.4) K/uL Iron # (Auto) 0.6 (0.0-0.8) K/uL Eos # (Auto) 0.2 (0.0-0.7) K/uL Baso # (Auto) 0.0 (0.0-0.1) K/uL Nucleated RBC % 0.0 /100WBC Nucleated RBCs # 0 K/uL Sodium 142 (136-148) mmol/L Potassium 3.1 L (3.5-5.1) mmol/L Chloride 109 H (98-107) mmol/L Carbon Dioxide 19.6 L (21.0-32.0) mmol/L BUN 13 (7.0-18.0) mg/dL Creatinine 1.2 (0.8-1.3) mg/dL Est Cr Clr Drug Dosing 56.55 mL/min Estimated GFR (MDRD) 59.5 ml/min Glucose 89 (74-106) mg/dL Calcium 9.7 (8.5-10.1) mg/dL Total Bilirubin 0.7 (0.2-1.0) mg/dL AST 22 (15-37) IU/L ALT 26 (14-63) IU/L Alkaline Phosphatase 112 (46-116) U/L Total Protein 7.9 (6.4-8.2) g/dL Albumin 3.7 (3.4-5.0) g/dL Globulin 4.2 H (2.6-4.0) g/dL Albumin/Globulin Ratio 0.9 (0.9-1.6) Lipase 163 (73-393) U/L Urine Color YELLOW Urine Appearance CLEAR Urine pH 6.5 (5.0-8.0) Ur Specific [place] 1.015 (1.001-1.035) Urine Protein NEGATIVE (NEGATIVE) mg/dL Urine Glucose (UA) NEGATIVE (NEGATIVE) mg/dL Urine Ketones NEGATIVE (NEGATIVE) mg/dL Urine Occult Blood NEGATIVE (NEGATIVE) Urine Nitrite NEGATIVE (NEGATIVE) Urine Bilirubin NEGATIVE (NEGATIVE) Urine Urobilinogen 0.2 (<2.0) EU/dL Ur Leukocyte Esterase NEGATIVE (NEGATIVE) Urine RBC NONE SEEN (0-2/HPF) Urine WBC NONE SEEN (0-5/HPF) Ur Epithelial Cells RARE (NONE-FEW) Urine Bacteria NOT SEEN (NEGATIVE) Urine Mucus LIGHT (NONE-MOD) Meds: Medications Generic Name Dose Route Start Last Admin Trade Name Freq PRN Reason Stop Dose Admin Sodium Chloride 10 ml 09/17/18 11:03 09/17/18 11:16 Saline Flush FLUSH 10 ml ASDIRECTED PRN Administration Keep Vein Open Sodium Chloride 2.5 ml 09/17/18 11:03 09/17/18 11:16 Saline Flush FLUSH 2.5 ml ASDIRECTED PRN Administration Keep Vein Open Discontinued Medications Generic Name Dose Route Start Last Admin Trade Name Freq PRN Reason Stop Dose Admin Sodium Chloride 1,000 mls @ 999 mls/hr 09/17/18 12:28 09/17/18 12:34 Normal Saline IV 09/17/18 13:28 999 mls/hr .Bolus ONE Administration Iopamidol 100 ml 09/17/18 13:19 09/17/18 13:19 Isovue Multipack-370 (76%) IVPUSH 09/17/18 13:20 100 ml ONETIME STA Administration Potassium Chloride 40 meq 09/17/18 13:31 Klor-Con M20 PO 09/17/18 13:32 ONETIME ONE Departure - Departure Time of Disposition: 13:33 Disposition: Home, Self-Care 01 Condition: Good Clinical Impression: Omental infarction - Discharge Information *PRESCRIPTION DRUG MONITORING PROGRAM REVIEWED*: No *COPY OF PRESCRIPTION DRUG MONITORING REPORT IN PATIENT KARLO: No Prescriptions: Acetaminophen/HYDROcodone [[place] 325-5 MG] 1 tab PO Q6H PRN #30 tablet PRN Reason: Pain Referrals: Fausto Matias MD [Primary Care Provider] - Forms: ED Department Discharge Additional Instructions: The following information is given to patients seen in the emergency department who are being discharged to home. This information is to outline your options for follow-up care. We provide all patients seen in our emergency department with a follow-up referral. The need for follow-up, as well as the timing and circumstances, are variable depending upon the specifics of your emergency department visit. If you don't have a primary care physician on staff, we will provide you with a referral. We always advise you to contact your personal physician following an emergency department visit to inform them of the circumstance of the visit and for follow-up with them and/or the need for any referrals to a consulting specialist. The emergency department will also refer you to a specialist when appropriate. This referral assures that you have the opportunity for follow-up care with a specialist. All of these measure are taken in an effort to provide you with optimal care, which includes your follow-up. Under all circumstances we always encourage you to contact your private physician who remains a resource for coordinating your care. When calling for follow-up care, please make the office aware that this follow-up is from your recent emergency room visit. If for any reason you are refused follow-up, please contact the [facility] Emergency Department at and asked to speak to the emergency department charge nurse. [facility] [address] [place] [id number] - My Orders Last 24 Hours: My Active Orders 09/17/18 11:03 Sodium Chloride 0.9% [Saline Flush] 10 ml FLUSH ASDIRECTED PRN Sodium Chloride 0.9% [Saline Flush] 2.5 ml FLUSH ASDIRECTED PRN Saline Lock Insert [OM.PC] Stat - Assessment/Plan Last 24 Hours: My Active Orders 09/17/18 11:03 Sodium Chloride 0.9% [Saline Flush] 10 ml FLUSH ASDIRECTED PRN Sodium Chloride 0.9% [Saline Flush] 2.5 ml FLUSH ASDIRECTED PRN Saline Lock Insert [OM.PC] Stat
[2018-09-17] MEDS ORDERED: Sodium Chloride 0.9% 1,000 ML IV ONE (12:28)
[2018-09-17 13:07] VITALS: BP 158/86
--- NOTE | 2018-09-17 13:09 | CT ---
CT of the abdomen and pelvis with contrast. HISTORY: Pain TECHNIQUE: Axial CT images were obtained of the abdomen and pelvis following administration of 100 mL of Isovue-370 in the left antecubital fossa without complication. Coronal and sagittal reconstructions obtained. FINDINGS: Mild dependent atelectasis. The liver, spleen, adrenal glands, and pancreas appear grossly unremarkable. Likely tiny hepatic cyst within the dome of the liver. There is a small hiatal hernia. Cholelithiasis without evidence of cholecystitis. No bulky retroperitoneal lymphadenopathy or abdominal ascites. The kidneys enhance and function symmetrically without evidence of obstructive uropathy. Renal cortical cysts are noted. Tiny nonobstructing nephrolithiasis. The large and small bowel are normal in caliber without evidence of obstruction. Sigmoid and descending diverticulosis. There is fat stranding within the ventral abdomen anteriorly, not immediately adjacent to the colon to suggest epiploic appendicitis. Appendix is normal. The urinary bladder is normal. The prostate is mildly prominent and heterogeneous. No bulky pelvic lymphadenopathy. No suspicious osseous abnormalities identified. Degenerative changes noted within the lumbar spine and hips. Laminectomy changes noted at L2. IMPRESSION: 1. Small area of fat stranding within the ventral abdomen, likely a small omental fat infarct. 2. Cholelithiasis without evidence of cholecystitis. 3. Nonobstructing nephrolithiasis. 4. Diverticulosis without evidence of diverticulitis. 5. Small hiatal hernia.
[2018-09-17] MEDS ORDERED: Iopamidol 755 MG/ML 500 ML Multipack Bottle IVPUSH STA (13:19)
[2018-09-17] MEDS ORDERED: Potassium Chloride 20 MEQ Tab.ER PO ONE (13:31)
== END 2018-09-17 14:09 | disposition home or self-care (01) ==
LOC: MW.ED 10:46
DX: K55.069 Acute infarction of intestine, part and extent unspecified (principal); I10 Essential (primary) hypertension; K21.9 Gastro-esophageal reflux disease without esophagitis; Z98.49 Cataract extraction status, unspecified eye; Z96.653 Presence of artificial knee joint, bilateral; Z88.5 Allergy status to narcotic agent; Z79.82 Long term (current) use of aspirin; Z79.899 Other long term (current) drug therapy; Z91.09 Other allergy status, other than to drugs and biological substances; Z88.8 Allergy status to other drugs, medicaments and biological substances
CPT/HCPCS: 36415; 74177; 80053; 81001; 83690; 85025; 96360; 99284; A9270; J7040; Q9967

== ENCOUNTER 2019-08-20 07:40 | Day surgery (SDC) | payer OTHER ==
[~2019-08-20 07:40] MED LIST changes: -Acetaminophen/HYDROcodone 325-10 MG Tab PO PRN; -Bupivacaine 0.5% 30 ML SDV ONE; -Glycopyrrolate 0.2 MG/ML SDV ONE; -Ketorolac 10 MG Tab PO PRN; -Ketorolac 30 MG/ML SDV ONE; +Lidocaine 2% 5 ML SDV ONE; -Ondansetron 4 MG/2 ML SDV ONE; -Ropivacaine 0.5% 5 MG/ML 30 ML SDV ONE; +Sodium Chloride 0.9% 10 ML SDV IV PRN; +Sodium Chloride 0.9% 10 ML Syringe FLUSH PRN; +Sodium Chloride 0.9% 2.5 ML Syringe FLUSH PRN; -ceFAZolin 2 GM in Premix Bag 1 BAG IV SCH
--- NOTE | 2019-08-20 08:30 | PCM.PREANE ---
Preanesthetic Assessment - Anesthesia/Transfusion/Family Hx Anesthesia History: Prior Anesthesia Reaction Other Type of Anesthesia Reaction Comment: rash on his lower back after spinal anesthesia Family History of Anesthesia Reaction: No Transfusion History: No Prior Transfusion(s) - Review of Systems General: No Symptoms Pulmonary: No Symptoms Cardiovascular: No Symptoms Gastrointestinal: Difficulty Swallowing - Physical Assessment NPO Status Date: 08/19/19 Vital Signs: Last Vital Signs Temp 98.1 F 08/20/19 07:55 Pulse 86 08/20/19 07:55 Resp 15 08/20/19 07:55 BP 138/96 H 08/20/19 07:55 Pulse Ox 95 08/20/19 07:55 Height: 5 ft 9 in Weight: 92.986 kg ASA Class: 2 Mental Status: Alert & Oriented x3 Airway Class: Mallampati = 2 Dentition: Reports: Normal Dentition ROM/Head Extension: Full Lungs: Clear to Auscultation, Normal Respiratory Effort - Allergies Allergies/Adverse Reactions: Allergies Allergy/AdvReac Type Severity Reaction Status Date / Time atorvastatin calcium Allergy Body Aches Verified 08/17/19 12:41 [From Lipitor] diclofenac Allergy Rash Verified 08/17/19 12:41 tramadol Allergy Rash Verified 08/17/19 12:41 Animal dander Allergy Itching Uncoded 08/17/19 12:41 Crestor Allergy Body Aches Uncoded 08/17/19 12:41 - Blood Blood Available: No - Anesthesia Plan Pre-Op Medication Ordered: None - Acknowledgements Anesthesia Type Planned: General Anesthesia Pt an Appropriate Candidate for the Planned Anesthesia: Yes Alternatives and Risks of Anesthesia Discussed w Pt/Guardian: Yes Pt/Guardian Understands and Agrees with Anesthesia Plan: Yes Additional Comments: anes prob list: chr LBP, asthma, gerd, PLAN: tiva PreAnesthesia Questionnaire HEENT History: Reports: Cataract, Hard of Hearing Other HEENT History: uses reading glasses, has bilateral hearing aides, is deaf in left ear so that hearing aide "transmits" to the right one Cardiovascular History: Reports: High Cholesterol, Hypertension Respiratory History: Reports: Asthma, Sleep Apnea Other Respiratory History: had asthma as a child, has a ProAir inhaler but doesn 't use it, has a CPAP but doesn't use it Gastrointestinal History: Reports: Diverticulosis, GERD, Hiatal Hernia Genitourinary History: Reports: Renal Calculus Other Genitourinary History: has passed some kidney stones and still has some in the kidney Musculoskeletal History: Reports: Back Pain, Chronic, Neck Pain, Chronic, Osteoarthritis Neurological History: Reports: Concussion, Headaches, Chronic, Migraines, Seizure Other Neuro History: hx of a 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" and vertigo- not for many years, hx of migraines but none since he started Topirimate Hematologic History: Reports: Anesthesia Reaction, Anemia Other Hematologic History: got a rash that lasted 6 weeks after Spinal anesthesia in [place] (first TKA) - Infectious Disease History Infectious Disease History: Reports: C-Difficile, Measles, Mumps - Past Surgical History Head Surgeries/Procedures: Reports: None HEENT Surgical History: Reports: Cataract Surgery, Oral Surgery Other HEENT Surgeries/Procedures: has lower right dental implant GI Surgical History: Reports: Colonoscopy, EGD, Hernia, Inguinal, Other (See Below) Other GI Surgeries/Procedures: umbilical hernia repair x2 Neurological Surgical History: Reports: Laminectomy Musculoskeletal Surgical History: Reports: Arthroscopic Knee, Knee Replacement, Shoulder Replacement, Shoulder Surgery, Other (See Below) Other Musculoskeletal Surgeries/Procedures:: bilateral TKA, left foot reconstruction (has screws in foot), left total shoulder arthroplasty RTCR - SUBSTANCE USE Smoking Status *Q: Never Smoker Recreational Drug Use History: No - HOME MEDS Home Medications: Home Meds Enalapril [Vasotec] 20 mg PO BRK 07/01/14 [History] Pravastatin [Pravachol] 80 mg PO DAILY 07/01/14 [History] hydroCHLOROthiazide [Hydrochlorothiazide] 25 mg PO BRK 07/01/14 [History] Aspirin [Adult Low Dose Aspirin EC] 81 mg PO DAILY 12/02/17 [History] Ezetimibe [Zetia] 10 mg PO QAM 12/02/17 [History] Lutein/Minerals/Vit A,C & E [Ocuvite] 1 tab PO DAILY 12/02/17 [History] Testosterone Cypionate 1 ml IM ASDIRECTED 12/02/17 [History] Topiramate 50 mg PO DAILY 12/02/17 [History] Omeprazole 40 mg PO DAILY 09/17/18 [History] Ketamine HCl [Ketamine Hydrochloride] 1 dose TOP ASDIRECTED PRN 08/17/19 [ History] - CURRENT (IN HOUSE) MEDS Current Meds: Current Medications Lactated Ringer's (Ringers, Lactated) 1,000 mls @ 125 mls/hr IV ASDIRECTED CANDY Sodium Chloride (Saline Flush) 10 ml FLUSH ASDIRECTED PRN PRN Reason: Keep Vein Open Sodium Chloride (Saline Flush) 2.5 ml FLUSH ASDIRECTED PRN PRN Reason: Keep Vein Open Sodium Chloride (Saline Flush) 10 ml FLUSH ASDIRECTED PRN PRN Reason: Keep Vein Open Sodium Chloride (Saline Flush) 2.5 ml FLUSH ASDIRECTED PRN PRN Reason: Keep Vein Open Sodium Chloride (Normal Saline) 10 ml IV ASDIRECTED PRN PRN Reason: IV Use Discontinued Medications Fentanyl (Sublimaze) Confirm Administered Dose 100 mcg .ROUTE .STK-MED ONE Stop: 08/20/19 07:11 Lidocaine (Xylocaine-Mpf 2%) Confirm Administered Dose 5 ml .ROUTE .STK-MED ONE Stop: 08/20/19 07:11 Midazolam HCl (Versed 1 Mg/Ml) Confirm Administered Dose 2 mg .ROUTE .STK-MED ONE Stop: 08/20/19 07:11 Propofol (Diprivan 20 Ml) Confirm Administered Dose 400 mg .ROUTE .STK-MED ONE Stop: 08/20/19 07:11
--- NOTE | 2019-08-20 09:55 | PCM.POSTAN ---
POST ANESTHESIA ASSESSMENT - MENTAL STATUS Mental Status: Alert - VITAL SIGNS Vital Signs: Last Vital Signs Temp 37 C 08/20/19 09:32 Pulse 89 08/20/19 09:47 Resp 17 08/20/19 09:47 BP 111/78 08/20/19 09:47 Pulse Ox 96 08/20/19 09:47 - RESPIRATORY Respiratory Status: Respiratory Rate WNL - CARDIOVASCULAR CV Status: Pulse Rate WNL - GASTROINTESTINAL GI Status: No Symptoms - POST OP HYDRATION Hydration Status: Adequate & Stable
[2019-08-20 10:13] VITALS: BP 122/77; PULSE 81
--- NOTE | 2019-08-20 10:22 | PCM48HPAN ---
Post Anesthesia Note - EVALUATION WITHIN 48HRS OF ANESTHETIC Vital Signs in Normal Range: Yes Patient Participated in Evaluation: Yes Respiratory Function Stable: Yes Airway Patent: Yes Cardiovascular Function Stable: Yes Hydration Status Stable: Yes Pain Control Satisfactory: Yes Nausea and Vomiting Control Satisfactory: Yes Mental Status Recovered: Yes Vital Signs: Last Vital Signs Temp 98.6 F 08/20/19 09:32 Pulse 81 08/20/19 09:54 Resp 16 08/20/19 09:54 BP 122/77 08/20/19 09:54 Pulse Ox 94 L 08/20/19 09:54
--- NOTE | 2019-08-20 13:35 | PCM.OPNOTE ---
- General Post-Op/Procedure Note Date of Surgery/Procedure: 08/20/19 Operative Procedure(s): Diagnostic EGD and colonoscopy Findings: Ulcerative esophagitis with GERD and esophageal stricture Pre Op Diagnosis: Iron deficiency anemia Post-Op Diagnosis: Hiatal hernia with GERD and esophagitis, esophageal stricture , normal colonoscopy Anesthesia Technique: [facility] Primary Surgeon: Sari Yoder Condition: Good Free Text/Narrative:: Intake & Output 08/19/19 08/20/19 08/20/19 22:59 06:59 14:59 Intake Total 900 Balance 900
--- NOTE | 2019-08-21 17:32 | OR ---
SURGEON: SARI YODER MD DATE OF PROCEDURE: 08/20/2019 PREOPERATIVE DIAGNOSES: Dysphagia, anemia. POSTOPERATIVE DIAGNOSES: 1. Hiatal hernia with gastroesophageal reflux disease and esophagitis. 2. Esophageal stricture. 3. Normal colonoscopy. PROCEDURES PERFORMED: Diagnostic esophagogastroduodenoscopy and colonoscopy. PRIMARY SURGEON: Sari Yoder MD. ANESTHESIA: MAC. INSTRUMENT USED: Olympus endoscope, colonoscope. EXTENT OF EXAM: To the2nd portion of the duodenum, to the cecum. PREPARATION: Good. LIMITATIONS: None. INDICATIONS FOR EXAMINATION: The patient is a 74-year-old male who presents with anemia. He is also complaining of dysphagia. He had an EGD prior, which showed a hiatal hernia. He and I discussed the need for diagnostic EGD and colonoscopy. I explained the procedure; expected perioperative course; and risks including bleeding, infection, or damage to surrounding structures including perforation. He verbalized understanding and wishes to proceed. PROCEDURE IN DETAIL: The patient was brought into the endoscopy suite and placed in a left lateral decubitus position. A time-out was completed verifying the patient's name, age, date of , allergies, and procedure to be performed. Monitored anesthesia care was induced and continuous oxygen was provided via nasal cannula throughout the procedure. A bite block was placed in the patient's mouth. After adequate sedation was achieved, a well-lubricated endoscope was placed in the patient's mouth and advanced under direct visualization to the distal esophagus. The patient was noted to have a tight stricture at the GE junction. I could not pass my scope through this area. I could see a small hiatal hernia sac. The distal esophagus appeared inflamed and ulcerated. A biopsy of this was taken. The remainder of the esophagus was normal and this portion of procedure terminated. A digital rectal exam was performed. This exam was within normal limits. A well-lubricated colonoscope was inserted in the rectum and advanced under direct visualization to the level of the cecum. The cecum was identified by both visual and anatomic landmarks. A photograph was taken of the cecal cap; however, I was unable to retroflex the scope within the cecum due to looping of the scope more proximally. The scope was then fully withdrawn while examining the color, texture, anatomy, and integrity of the mucosa from the cecum to the anal canal. The findings were consistent with normal colonic mucosa. The scope was brought into the rectum and retroflexed to allow visualization of the anal canal opening. This appeared normal and a photograph was taken. The scope was then straightened out and fully withdrawn. Cecum to anus time was 6 minutes. The patient tolerated the procedure well and was transferred to the PACU in stable condition. ENDOSCOPIC DIAGNOSES: 1. Hiatal hernia with gastroesophageal reflux disease and esophagitis. 2. Esophageal stricture. 3. Normal colonoscopy. RECOMMENDATIONS: We will start the patient on pantoprazole and follow up in clinic in 2 weeks. JARAD FREEMAN /[id number]
== END 2019-08-20 10:20 | disposition home or self-care (01) ==
LOC: MW.SDS 07:40
PROVIDERS: ATTEND Surgery
DX: D50.9 Iron deficiency anemia, unspecified (principal); K21.0 Gastro-esophageal reflux disease with esophagitis; K44.9 Diaphragmatic hernia without obstruction or gangrene; K22.2 Esophageal obstruction; I10 Essential (primary) hypertension; E78.00 Pure hypercholesterolemia, unspecified; J45.909 Unspecified asthma, uncomplicated; M16.0 Bilateral primary osteoarthritis of hip; M47.816 Spondylosis without myelopathy or radiculopathy, lumbar region; M48.062 Spinal stenosis, lumbar region with neurogenic claudication; M19.032 Primary osteoarthritis, left wrist; M19.031 Primary osteoarthritis, right wrist; G89.4 Chronic pain syndrome; M96.1 Postlaminectomy syndrome, not elsewhere classified; G43.909 Migraine, unspecified, not intractable, without status migrainosus; G47.30 Sleep apnea, unspecified; H91.92 Unspecified hearing loss, left ear; Z88.5 Allergy status to narcotic agent; Z88.6 Allergy status to analgesic agent; Z88.8 Allergy status to other drugs, medicaments and biological substances; Z91.09 Other allergy status, other than to drugs and biological substances; Z91.018 Allergy to other foods; Z79.82 Long term (current) use of aspirin; Z79.899 Other long term (current) drug therapy
CPT/HCPCS: 43202; 45378; J2001; J2250; J2704; J3010; J7120; 88305

== ENCOUNTER → 2020-02-11 | Day surgery (SDC) | payer OTHER ==
--- NOTE | 2020-02-11 10:08 | PCM.PREANE ---
Preanesthetic Assessment - Anesthesia/Transfusion/Family Hx Anesthesia History: No Prior Anesthesia Other Type of Anesthesia Reaction Comment: rash after spinal anesthesia Transfusion History: No Prior Transfusion(s) - Review of Systems General: No Symptoms Pulmonary: No Symptoms Cardiovascular: No Symptoms Gastrointestinal: No Symptoms Neurological: No Symptoms Other: Reports: None - Physical Assessment NPO Status Date: 02/10/20 Height: 5 ft 9 in Weight: 92.533 kg Airway Class: Mallampati = 2 ROM/Head Extension: Full Lungs: Clear to Auscultation, Normal Respiratory Effort Cardiovascular: Regular Rate, Regular Rhythm - Allergies Allergies/Adverse Reactions: Allergies Allergy/AdvReac Type Severity Reaction Status Date / Time atorvastatin calcium Allergy Body Aches Verified 02/05/20 13:49 [From Lipitor] diclofenac Allergy Rash Verified 02/05/20 13:49 enalapril Allergy Rash Verified 02/05/20 13:49 tramadol Allergy Rash Verified 02/05/20 13:49 Animal dander Allergy Itching Uncoded 08/17/19 12:41 Crestor Allergy Body Aches Uncoded 02/05/20 13:49 - Blood Blood Available: No - Anesthesia Plan Pre-Op Medication Ordered: None - Acknowledgements Anesthesia Type Planned: General Anesthesia (tiva) Pt an Appropriate Candidate for the Planned Anesthesia: Yes Alternatives and Risks of Anesthesia Discussed w Pt/Guardian: Yes Pt/Guardian Understands and Agrees with Anesthesia Plan: Yes PreAnesthesia Questionnaire HEENT History: Reports: Cataract, Hard of Hearing Other HEENT History: uses reading glasses, has bilateral hearing aides, is deaf in left ear so that hearing aide "transmits" to the right one Cardiovascular History: Reports: High Cholesterol, Hypertension Respiratory History: Reports: Asthma, Sleep Apnea Other Respiratory History: had asthma as a child, has a ProAir inhaler but doesn't use it, has a CPAP but doesn't use it Gastrointestinal History: Reports: Diverticulosis, GERD, Hiatal Hernia, Other (See Below) Other Gastrointestinal History: esophageal stricture Genitourinary History: Reports: Renal Calculus Other Genitourinary History: has passed some kidney stones and still has some in the kidney Musculoskeletal History: Reports: Back Pain, Chronic, Neck Pain, Chronic, Osteoarthritis Neurological History: Reports: Concussion, Headaches, Chronic, Migraines, Seizure Other Neuro History: hx of a 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" and vertigo- not for many years, hx of migraines but none since he started Topirimate Psychiatric History: Reports: Depression Hematologic History: Reports: Anesthesia Reaction, Anemia Other Hematologic History: got a rash that lasted 6 weeks after Spinal anesthesia in [place] (first TKA) Dermatologic History: Reports: Other (See Below) Other Dermatologic History: hive like rash with blisters- 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 (awaiting cort[facility]one cream from [facility]) - Infectious Disease History Infectious Disease History: Reports: C-Difficile, Measles, Mumps - Past Surgical History Head Surgeries/Procedures: Reports: None HEENT Surgical History: Reports: Cataract Surgery, Oral Surgery Other HEENT Surgeries/Procedures: has lower right dental implant GI Surgical History: Reports: Colonoscopy, EGD, Hernia, Inguinal, Other (See Below) Other GI Surgeries/Procedures: umbilical hernia repair x2 Male Surgical History: Reports: Vasectomy Neurological Surgical History: Reports: Laminectomy Musculoskeletal Surgical History: Reports: Arthroscopic Knee, Knee Replacement, Shoulder Replacement, Shoulder Surgery, Other (See Below) Other Musculoskeletal Surgeries/Procedures:: bilateral TKA, left foot reconstruction (has screws in foot), left total shoulder arthroplasty RTCR - SUBSTANCE USE Smoking Status *Q: Never Smoker Recreational Drug Use History: No - HOME MEDS Home Medications: Home Meds Pravastatin [Pravachol] 80 mg PO DAILY 07/01/14 [History] Ezetimibe [Zetia] 10 mg PO QAM 12/02/17 [History] Testosterone Cypionate 1 ml IM ASDIRECTED 12/02/17 [History] Topiramate 50 mg PO BID 12/02/17 [History] Pantoprazole Sodium 40 mg PO ACBREAKFAST #30 tablet. 08/20/19 [Rx] Hydrocortisone [Hydrocortisone 1% Crm] 1 applic TOP ASDIRECTED PRN 02/05/20 [History] Naltrexone 50 mg PO QAM 02/05/20 [History] Propranolol [Inderal LA] 80 mg PO QAM 02/05/20 [History] - CURRENT (IN HOUSE) MEDS Current Meds: Current Medications Lactated Ringer's (Ringers, Lactated) 1,000 mls @ 125 mls/hr IV ASDIRECTED CANDY Sodium Chloride (Saline Flush) 10 ml FLUSH ASDIRECTED PRN PRN Reason: Keep Vein Open Sodium Chloride (Saline Flush) 2.5 ml FLUSH ASDIRECTED PRN PRN Reason: Keep Vein Open Sodium Chloride (Normal Saline) 10 ml IV ASDIRECTED PRN PRN Reason: IV Use Discontinued Medications Fentanyl (Sublimaze) Confirm Administered Dose 100 mcg .ROUTE .STK-MED ONE Stop: 02/11/20 07:18 Midazolam HCl (Versed 1 Mg/Ml) Confirm Administered Dose 2 mg .ROUTE .STK-MED ONE Stop: 02/11/20 07:18 Propofol (Diprivan 20 Ml) Confirm Administered Dose 200 mg .ROUTE .STK-MED ONE Stop: 02/11/20 07:18
--- NOTE | 2020-02-11 12:55 | PCM.POSTAN ---
POST ANESTHESIA ASSESSMENT - MENTAL STATUS Mental Status: Alert, Oriented - VITAL SIGNS Vital Signs: Last Vital Signs Temp 97.9 F 02/11/20 12:36 Pulse 63 02/11/20 12:47 Resp 17 02/11/20 12:47 BP 110/78 02/11/20 12:47 Pulse Ox 98 02/11/20 12:47 - RESPIRATORY Respiratory Status: Respiratory Rate WNL, Airway Patent, O2 Saturation Stable - CARDIOVASCULAR CV Status: Pulse Rate WNL, Blood Pressure Stable - GASTROINTESTINAL GI Status: No Symptoms - PAIN Pain Score: 0 - POST OP HYDRATION Hydration Status: Adequate & Stable
--- NOTE | 2020-02-11 13:10 | PCM48HPAN ---
Post Anesthesia Note - EVALUATION WITHIN 48HRS OF ANESTHETIC Vital Signs in Normal Range: Yes Patient Participated in Evaluation: Yes Respiratory Function Stable: Yes Airway Patent: Yes Cardiovascular Function Stable: Yes Hydration Status Stable: Yes Pain Control Satisfactory: Yes Nausea and Vomiting Control Satisfactory: Yes Mental Status Recovered: Yes Vital Signs: Last Vital Signs Temp 97.9 F 02/11/20 12:36 Pulse 54 L 02/11/20 12:57 Resp 14 02/11/20 12:57 BP 128/87 02/11/20 12:57 Pulse Ox 95 02/11/20 12:57
--- NOTE | 2020-02-11 13:31 | PCM.OPNOTE ---
- General Post-Op/Procedure Note Date of Surgery/Procedure: 02/11/20 Operative Procedure(s): Diagnostic EGD with biopsy Findings: Esophageal stricture with chronic inflammation and superficial ulceration. hiatal hernia Pre Op Diagnosis: Hiatal hernia with reflux and esophagitis, esophageal stricture Post-Op Diagnosis: same Anesthesia Technique: MAC Primary Surgeon: Sari Yoder Condition: Good Free Text/Narrative:: Intake & Output 02/10/20 02/11/20 02/11/20 22:59 06:59 14:59 Intake Total 900 Balance 900
[2020-02-11 15:47] VITALS: BP 148/90; PULSE 56
--- NOTE | 2020-02-11 18:46 | OR ---
SURGEON: SARI YODER MD DATE OF PROCEDURE: 02/11/2020 PREOPERATIVE DIAGNOSES: 1. Hiatal hernia with gastroesophageal reflux disease and esophagitis. 2. Esophageal stricture. POSTOPERATIVE DIAGNOSES: 1. Hiatal hernia with gastroesophageal reflux disease and esophagitis. 2. Esophageal stricture. PROCEDURE PERFORMED: Diagnostic esophagogastroduodenoscopy with biopsy. PRIMARY SURGEON: Sari Yoder MD ANESTHESIA: MAC. INSTRUMENT USED: Olympus endoscope. EXTENT OF EXAM: To the pylorus. PREPARATION: Good. LIMITATIONS: Unable to pass the scope through the pylorus. INDICATIONS: The patient is a 74-year-old male who was diagnosed last year with a hiatal hernia which was causing severe reflux, esophagitis associated with superficial ulcerations as well as an esophageal stricture. The patient was started on a PPI and sent to a navy fighter pilot. Later, the patient was found having increasing dysphagia. The decision was made to proceed with diagnostic EGD. I did consent the patient for dilation, but told him that if the stricture was severe or if there were signs of ulceration, I would not perform a dilation. We discussed the procedure, expected perioperative course, and risks. He verbalized understanding and wished to proceed. PROCEDURE IN DETAIL: The patient was brought into the endoscopy suite and placed in a beach chair position. A time-out was completed verifying the patient's name, age, date of , allergies, and procedure to be performed. Monitored anesthesia care was induced and a bite block was placed in the patient's mouth. Continuous oxygen was provided via face mask throughout the procedure. After adequate sedation was achieved, a well-lubricated endoscope was placed in the patient's mouth and advanced under direct visualization to the distal esophagus. At the level of the distal esophagus, the patient was again noted to have an esophageal stricture and esophagitis. There was some superficial ulceration, but not as severe as during our first EGD. I was able to pass my scope through the stricture into the stomach. There was a small amount of saliva within the stomach. I was advancing my scope to the level of the pylorus when the patient refluxed his saliva and aspirated on some of it. The scope was removed, and the patient was aggressively suctioned. Once his respiratory status was stabilized, I advance my scope again. At the level of pylorus, I was able to see into the duodenum, but could not pass my scope through. The patient did not appear to have a stricture, but continued to cough through my procedure, and the decision was made not to try and advance the scope any further. A photograph was taken of the pylorus as well as the GE junction. The patient clearly had a hiatal hernia and that was noted again. Biopsies were taken of the gastric antrum, body, and fundus and sent for histologic review and H. pylori testing. Photographs were then taken of the hiatal hernia sac as well as the esophageal stricture and the associated inflammation. There was a small amount of bleeding due to my scope passing through the area. A small biopsy was taken of the esophageal mucosa just above the stricture and sent to pathology, labeled as esophagus. Once hemostasis was achieved. I examined the remainder of the esophageal mucosa. The patient did appear to have some mild to moderate dilation of the esophagus above the stricture. The remainder of the esophagus appeared normal. The scope was removed and the procedure terminated. The patient tolerated it well and was taken in stable condition to the PACU. ENDOSCOPIC DIAGNOSES: 1. Hiatal hernia with gastroesophageal reflux disease and esophagitis. 2. Esophageal stricture. RECOMMENDATIONS: We will refer the patient to a navy fighter pilot as well as a surgeon to discuss repair of his hiatal hernia and management of this reflux and stricture. JARAD FREEMAN /[id number]
== END | disposition home or self-care (01) ==
LOC: MW.SDS 09:47
PROVIDERS: ATTEND Surgery
DX: K29.50 Unspecified chronic gastritis without bleeding (principal); K22.2 Esophageal obstruction; K44.9 Diaphragmatic hernia without obstruction or gangrene; K21.0 Gastro-esophageal reflux disease with esophagitis; K22.10 Ulcer of esophagus without bleeding; J45.909 Unspecified asthma, uncomplicated; I10 Essential (primary) hypertension; K21.9 Gastro-esophageal reflux disease without esophagitis; E78.00 Pure hypercholesterolemia, unspecified; D50.9 Iron deficiency anemia, unspecified; Z88.5 Allergy status to narcotic agent; Z88.8 Allergy status to other drugs, medicaments and biological substances; Z79.899 Other long term (current) drug therapy
CPT/HCPCS: 43239; J2001; J2250; J2704; J3010; J7120